=== PATIENT | female | born 1960 | race Two or more races ===

== ENCOUNTER 2020-08-29 13:53 | Emergency (ER) | payer OTHER, SELFPAY ==
[2020-08-29 15:17] VITALS: BP 166/80; PULSE 84; RESP 15; TEMP 36.6; O2SAT 97; BMI 38.2
[2020-08-29 16:45] VITALS: BP 147/102; PULSE 87; RESP 19; TEMP 37.1; O2SAT 96
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
== END 2020-08-29 17:59 | disposition home or self-care (01) ==
PROVIDERS: Emergency Provider Emergency Medicine Emergency Medical Services; PCP Internal Medicine
DX: M17.0 Bilateral primary osteoarthritis of knee (principal); M79.601 Pain in right arm; M79.602 Pain in left arm; M79.605 Pain in left leg; M79.604 Pain in right leg; I10 Essential (primary) hypertension; Z79.899 Other long term (current) drug therapy
CPT/HCPCS: 99283; 99284

== ENCOUNTER 2021-09-24 15:33 | Outpatient (REF) | payer OTHER, SELFPAY ==
--- NOTE | ~2021-09-24 | XR_ITS ---
EXAMINATION: XR FOOT, RIGHT CLINICAL INFORMATION: M19.071 - Primary osteoarthritis, right ankle and foot COMPARISON: None TECHNIQUE: AP, lateral, and oblique views of the right foot. FINDINGS: There is no acute or healing fracture or dislocation. Hallux valgus is present approximately 30 degrees with medial bunion. There is no destructive process. No erosive changes. There are mild degenerative changes involving the DIP joints second and third toes. There are posterior and plantar calcaneal spurs. The subtalar joint is unremarkable. The retrocalcaneal recess is preserved. XR/XR foot RT min 3V IMPRESSION: 1. Hallux valgus with medial bunion. 2. Posterior and plantar calcaneal spurs. 3. Mild degenerative changes DIP joints second and third toes. No erosive changes.
== END 2021-09-24 15:34 | disposition home or self-care (01) ==
LOC: HO.HMGCX 15:33
PROVIDERS: PCP Internal Medicine; Visit Provider Internal Medicine
DX: M19.071 Primary osteoarthritis, right ankle and foot (principal)
CPT/HCPCS: 73630

== ENCOUNTER 2021-11-15 15:26 | Outpatient (REF) | payer OTHER, SELFPAY ==
--- NOTE | ~2021-11-15 | MM_ITS ---
EXAMINATION: MM SCREENING DIGITAL BREAST TOMOSYNTHESIS, BILATERAL CLINICAL INFORMATION: Screening. Asymptomatic. The lifetime risk of breast cancer based on the Tyrer-Cuzick Model is 6%. COMPARISON: Mammography: 10/31/2019, 03/05/2017, 07/06/2015 TECHNIQUE: Digital breast tomosynthesis is performed in both the craniocaudal and mediolateral oblique views along with computer-aided detection (CAD). Synthesized 2D images are generated from the tomosynthesis. FINDINGS: There are scattered areas of fibroglandular density (ACR BI-RADS breast composition Category b). The right breast shows parenchymal pattern similar to prior studies. There is no interval mass or architectural abnormality or developing density. The bilateral axilla and skin contours are unremarkable. Left breast has incidental new 0.8 cm oil cyst mid upper outer quadrant. Just anterior to the oil cyst is a 0.5 cm focal nodular asymmetry with questionable fatty component on tomography which may suggest adjacent fat necrosis. Left breast also has interval scattered fine calcifications upper outer left breast mid depth. There are benign grouped coarse calcifications anterior upper outer left breast and 2 groups of fine round calcifications upper outer left breast just anterior to the focal nodular asymmetry. Left breast findings may represent sequela from recent or remote trauma. Patient will be recalled for additional imaging. MM/MM tomosynthesis screening BI IMPRESSION: Left: -Small focal nodular asymmetry adjacent to benign oil cyst possibly focus of fat necrosis. -New scattered punctate round calcifications upper outer quadrant. Right: -No mammographic evidence of malignancy. ASSESSMENT: BI-RADS 0: Incomplete - Need Additional Imaging Evaluation RECOMMENDATION: 1. Additional views of the left breast for 2 findings: Focal nodular asymmetric density and grouped calcifications (spot magnification CC; spot magnification ML). 2. Targeted ultrasound if warranted after review of the additional views. 3. Radiology department staff will contact the patient for additional imaging. This patient's information was entered into a reminder system with a target due date for their next mammogram.
== END 2021-11-15 15:27 | disposition home or self-care (01) ==
LOC: HO.MAMMO 15:26
PROVIDERS: PCP Internal Medicine; Visit Provider Internal Medicine
DX: Z12.31 Encounter for screening mammogram for malignant neoplasm of breast (principal)
CPT/HCPCS: 77063; 77067

== ENCOUNTER 2021-12-02 14:32 | Outpatient (REF) | payer OTHER, SELFPAY ==
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
== END 2021-12-02 14:33 | disposition home or self-care (01) ==
LOC: HO.MAMMO 14:32
PROVIDERS: Visit Provider Internal Medicine
DX: R92.1 Mammographic calcification found on diagnostic imaging of breast (principal)
CPT/HCPCS: 76642; 77065

== ENCOUNTER 2022-05-30 14:47 | Outpatient (REF) | payer OTHER, SELFPAY ==
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
== END 2022-05-30 14:48 | disposition home or self-care (01) ==
LOC: HO.MAMMO 14:47
PROVIDERS: PCP Internal Medicine; Visit Provider Internal Medicine
DX: R92.1 Mammographic calcification found on diagnostic imaging of breast (principal)
CPT/HCPCS: 77061; 77065

== ENCOUNTER 2022-12-02 14:28 | Outpatient (REF) | payer OTHER, SELFPAY ==
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
== END 2022-12-02 14:29 | disposition home or self-care (01) ==
LOC: HO.MAMMO 14:28
PROVIDERS: PCP Internal Medicine; Visit Provider Internal Medicine
DX: R92.1 Mammographic calcification found on diagnostic imaging of breast (principal)
CPT/HCPCS: 77062; 77066

== ENCOUNTER 2023-01-06 16:40 | Outpatient (REF) | payer OTHER, SELFPAY ==
[2023-01-06 17:35] LABS: Influenza A PCR NEGATIVE (Negative); Influenza B PCR NEGATIVE (Negative); Resp Syncy Virus RNA Qual PCR NEGATIVE (Negative); SARS COV2 PCR INHOUSE NEGATIVE (Negative)
== END 2023-01-06 16:41 | disposition home or self-care (01) ==
LOC: HO.LNP 16:40
PROVIDERS: Visit Provider Physician Assistant
DX: Z20.822 Contact with and (suspected) exposure to COVID-19 (principal)
CPT/HCPCS: 0241U

== ENCOUNTER 2023-12-08 14:38 | Outpatient (REF) | payer OTHER, SELFPAY ==
--- NOTE | ~2023-12-08 | MM_ITS ---
EXAMINATION: MM DIAGNOSTIC DIGITAL BREAST TOMOSYNTHESIS, BILATERAL CLINICAL INFORMATION: The patient presents for twelve-month follow-up of left breast calcifications and annual screening of the right breast. COMPARISON: Mammography: This study is compared with prior examinations dating back to 2019. TECHNIQUE: Digital breast tomosynthesis is performed in both the craniocaudal and mediolateral oblique views along with computer-aided detection (CAD). Synthesized 2D images are generated from the tomosynthesis. CC and lateral magnification images of the left breast were obtained. FINDINGS: There are scattered areas of fibroglandular density (ACR BI-RADS breast composition Category b). There are no significant masses, abnormal calcifications, or other abnormalities in either breast. There are unchanged, benign, coarse calcifications in the upper outer quadrant of the right breast. MM/MM tomosynthesis diagnostic BI IMPRESSION: No mammographic evidence of malignancy. Benign calcifications left breast. ASSESSMENT: BI-RADS BI-RADS 2 - Benign Findings RECOMMENDATION: 1 year F/U Results were provided to the patient at time of visit by the technologist. This patient's information was entered into a reminder system with a target due date for their next mammogram.
== END 2023-12-08 14:39 | disposition home or self-care (01) ==
LOC: HO.MAMMO 14:38
PROVIDERS: PCP Internal Medicine; Visit Provider Internal Medicine
DX: R92.1 Mammographic calcification found on diagnostic imaging of breast (principal)
CPT/HCPCS: 77062; 77066

== ENCOUNTER → 2023-12-08 15:00 | Outpatient (BNV) | payer OTHER, SELFPAY | PROVIDERS: PCP Internal Medicine; Visit Provider Radiology Diagnostic Radiology | DX: R92.1 Mammographic calcification found on diagnostic imaging of breast (principal) | CPT/HCPCS: 77062; 77066 ==

== ENCOUNTER 2024-02-24 12:29 | Outpatient (AMB) | payer OTHER, SELFPAY ==
[2024-02-24 12:37] VITALS: BP 130/76; PULSE 76; O2SAT 96; BMI 41.1
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
== END 2024-02-24 15:29 | disposition home or self-care (01) ==
PROVIDERS: PCP Internal Medicine; Visit Provider Internal Medicine
DX: Z00.00 Encounter for general adult medical examination without abnormal findings (principal); Z92.89 Personal history of other medical treatment; I10 Essential (primary) hypertension; M54.2 Cervicalgia
CPT/HCPCS: 99396

== ENCOUNTER 2024-02-27 12:06 | Outpatient (REF) | payer OTHER, SELFPAY ==
[2024-02-27 13:33] LABS: MANUAL DIFF FLAG NO
[2024-02-27 13:35] LABS: Basophils Absolute Auto 0.1 X10*3/uL (0.0-0.2); Basophils Percent Auto 1.3 % (0-2); Eosinophils Absolute Auto 0.1 X10*3/uL (0.0-0.4); Eosinophils Percent Auto 1.5 % (0-4); Hematocrit 41.8 % (37.0-47.0); Hemoglobin 13.4 g/dl (12.0-16.0); Imm Gran Abs Auto 0.02 X10*3/uL (0.00-0.03); Imm Gran Pct Auto 0.3 % (0.0-0.4); Lymphocytes Percent Auto 32.7 % (20-40); Mean Corpuscular HGB Conc 32.1 g/dl (31.0-35.0); Mean Corpuscular Hemoglobin 28.6 pg (27.0-33.0); Mean Corpuscular Volume 89.1 fL (80.0-98.0); Monocytes Absolute Auto 0.4 X10*3/uL (0.1-1.2); Monocytes Percent Auto 6.7 % (2-11); Neutrophils Absolute Auto 3.5 x10*3/uL (2.0-8.3); Neutrophils Percent Auto 57.5 % (45-73); Platelet Count 276 X10*3/uL (160-400); Red Blood Count 4.69 X10*6/uL (4.20-5.50); White Blood Count 6.1 X10*3/uL (4.8-10.8)
[2024-02-27 14:31] LABS: Alanine Aminotransferase 18 U/L (0-31); Albumin Level 4.4 g/dL (3.5-5.0); Alkaline Phosphatase 66 U/L (39-117); Anion Gap 15 (12-20); Aspartate Amino Transferase 23 U/L (5-31); Bilirubin Total 0.3 mg/dL (0.0-1.0); Blood Urea Nitrogen 16 mg/dL (9-16); Calcium 9.9 mg/dL (8.4-10.2); Carbon Dioxide 27 mmol/L (22-29); Chloride 105 mmol/L (96-108); Cholesterol 232 mg/dL (<200); Estimated Glomerular Filt Rate > 60; Glucose Fasting 87 mg/dL (60-99); HDL Cholesterol 54 mg/dL (>40); LDL Cholesterol Calculated 153 mg/dL (<100); Potassium 4.7 mmol/L (3.3-5.1); Sodium 142 mmol/L (135-145); Triglycerides 127 mg/dL (<150)
[2024-02-27 14:46] LABS: Vitamin D 25-OH Total 37.4 ng/mL (>30)
== END 2024-02-27 12:07 | disposition home or self-care (01) ==
LOC: HO.HMGCLDS 12:06
PROVIDERS: PCP Internal Medicine; Visit Provider Internal Medicine
DX: Z00.00 Encounter for general adult medical examination without abnormal findings (principal); E55.9 Vitamin D deficiency, unspecified; I10 Essential (primary) hypertension
CPT/HCPCS: 36415; 80053; 80061; 82306; 84443; 85025

== ENCOUNTER 2024-05-11 12:15 | Outpatient (AMB) | payer OTHER, SELFPAY ==
[2024-05-11 12:16] VITALS: BP 134/82; PULSE 66; O2SAT 98; BMI 40.6
--- NOTE | 2024-05-11 12:16 | MHC.PC.OV ---
Vital Signs 05/11/24 12:16 Height 5 ft 3 in Weight 229 lb 2 oz BMI 40.6 BP 134/82 Blood Pressure Location Rt brachial Position Sitting Pulse 66 Pulse Source Pulse Oximeter Pulse Oximetry (%) 98 Oxygen Delivery Method Room Air Intake Visit Reasons: Follow up Intake Note: Pt is here today for a follow up visit. Allergies morphine [MORPHINE] Allergy (Unknown, Verified 05/11/24 12:17) PAIN IN STOMACH, stomach upset Medication List - Last Reconciled 05/11/24 by Alise Cardona MD lisinopril 10 mg PO DAILY sertraline 50 mg PO DAILY Ventolin HFA 90 mcg/actuation (albuterol sulfate) 2 puffs inhalation Q6H PRN NS Tobacco use date assessed: 05/11/24 Dental Screening Dental Screen Date: 05/11/24 Did you have a dental visit in the last 12 months?: Yes Did you have a dental problem in the last 6 months where you did not have access to dental care?: No Was dental information given to patient?: Patient has dentist HPI Follow up HPI Details Patient presents for the follow-up on hypertension controlled on lisinopril. Chronic anxiety stable on Zoloft. PE HPI Details Pt presents for HTN PFSH Medical History Diverticulitis Neck pain Annual physical exam Depression Migraine Chronic back pain Hypertension Surgical History S/P partial colectomy History of hysterectomy H/O colonoscopy Family History Father Diabetes mellitus Mother No problems noted. Social History Housing: Apartment Alcohol intake: never Patient Tobacco Use Status: Never used Tobacco e-Cigarette/Vaping Use: Never Used Current occupational status: unemployed Cognitive needs: No Hearing needs: No Vision needs: Yes Questionnaire PHQ-9 Over the last 2 weeks, how often have you been bothered by any of the following problems? 1. Little interest or pleasure in doing things: not at all 2. Feeling down, depressed, or hopeless: more than half the days 3. Trouble falling or staying asleep, or sleeping too much: not at all 4. Feeling tired or having little energy: more than half the days 5. Poor appetite or overeating: more than half the days 6. Feeling bad about yourself - or that you are a failure or have let yourself or your family down: not at all 7. Trouble concentrating on things, such as reading the newspaper or watching television: not at all 8. Moving or speaking so slowly that other people could have noticed. Or the opposite - being so fidgety or restless that you have been moving around a lot more than usual: not at all 9. Thoughts that you would be better off or of hurting yourself in some way: not at all Total score: 6 Depression Screening Interpretation: Negative Depression Screening Done: Yes 60064 - PHQ-9 Billing: Yes Source: Developed by Drs. Abel Rene, Viridiana Magallon, Cristian Chaudhary and colleagues, with an educational abe from [email or web address]. Thrive Questionnaire Date Thrive assessed: 05/11/24 I am a: Patient What is your living situation today?: I have a steady place to live Within the past 12 months, did the food you bought not last and you didn't have the money to get more?: Sometimes True Within the past 12 months, did you worry whether your food would run out before you got money to buy more?: Sometimes True Do you have trouble paying for medicines?: No Do you have trouble getting transportation to medical appointments?: No Do you have trouble paying your heating and electricity bill?: No Do you have trouble taking care of your child, family member or friend?: No Do you have trouble with day-to-day activities such as bathing, preparing meals, shopping, managing finances, etc.?: Yes Are you currently unemployed and looking for a job?: No Are you interested in more education?: No Please select the resources that you would like help with: Food Currently or been in a relationship where the following occur: No concerns reported THRIVE Score: 2 AUDIT C Alcohol Use Questionnaire (AUDIT-C) 1. How often do you have a drink containing alcohol?: Never 3. How often do you have six or more drinks on one occasion?: Never Total Score: 0 Score Reviewed/Action Taken: Yes KANU-7 AMB Questionnaire KANU-7 Date KANU - 7 assessed: 05/11/24 Feeling nervous, anxious, or on edge: 2 = More than half the days Not being able to stop or control worryin = Several days Worrying too much about different things: 1 = Several days Trouble relaxin = Not at all Being so restless that it is hard to sit still: 0 = Not at all Becoming easily annoyed or irritable: 0 = Not at all Feeling afraid as if something awful might happen: 1 = Several days Total KANU-7 score (0-4 normal; 5-9 mild; 10-14 moderate; 15-21 severe): 5 Source: Developed by Drs. Abel Rene, Viridiana Magallon, Cristian Chaudhary and colleagues, with an educational abe from [email or web address]. KANU-7 Assessment Billing KANU-7 Assessment Tool: KANU-7 Assessment 47145 Review of Systems Const All systems reviewed & are unremarkable except as noted in HPI and below Eyes Reports no additional complaints ENT Reports no additional complaints Card Reports no additional complaints Resp Reports no additional complaints GI Reports no additional complaints Reports no additional complaints Physical exam (Primary Care) Vital Signs: Last Vital Signs Pulse 66 05/11/24 12:16 BP 134/82 05/11/24 12:16 Pulse Ox 98 05/11/24 12:16 Oxygen Delivery Method Room Air 05/11/24 12:16 BMI result Body Mass Index 40.6 Tobacco/Smoking Status: Tobacco use Status Tobacco use date assessed 05/11/24 05/11/24 12:18 Patient Tobacco Use Status Never used Tobacco 05/11/24 12:18 e-Cigarette/Vaping Use Never Used 05/11/24 12:18 PHQ-9: PHQ-9 Score PHQ-9: Total score 6 05/11/24 12:18 Depression Screening Interpretation: Negative Thrive Assessment: Date of Thrive Assessment Date Thrive assessed 05/11/24 05/11/24 12:18 Currently or been in a relationship where the following occur: No concerns reported Const General: no acute distress HENMT Head: Yes normal to inspection Ears: hearing grossly normal bilaterally Neck Neck: Yes supple Resp Effort & Inspection: normal respiratory effort Auscultation: clear to auscultation bilaterally Cardio Rhythm: regular rhythm Heart sounds: S1 normal heart sound present and S2 normal heart sound present GI Inspection: Yes normal to inspection Palpation (GI): Soft to palpation Percussion: Yes normal to percussion Auscultation: normal bowel sounds Assessment and Plan Assessment & Plan (1) Hypertension: Code(s): I10 - Essential (primary) hypertension Plan: Continue Lisinopril (2) Hyperlipidemia: Code(s): E78.5 - Hyperlipidemia, unspecified Plan: Low-cholesterol diet increase exercise weight loss discussed with the patient (3) Overweight: Code(s): E66.3 - Overweight Plan: Decreasing caloric intake increase physical activity discussed with the patient return for physical with a fasting labs before Orders: Orders Lipid Panel 1 Year E66.3 - Overweight, E78.5 - Hyperlipidemia, unspecified, I10 - Essential (primary) hypertension Comprehensive [place]. Panel Fast 1 Year E66.3 - Overweight, E78.5 - Hyperlipidemia, unspecified, I10 - Essential (primary) hypertension TSH reflex Free T4 1 Year E66.3 - Overweight, E78.5 - Hyperlipidemia, unspecified, I10 - Essential (primary) hypertension Complete Blood Count Auto Diff 1 Year E66.3 - Overweight, E78.5 - Hyperlipidemia, unspecified, I10 - Essential (primary) hypertension Vitamin D 25-OH Total 1 Year E66.3 - Overweight, E78.5 - Hyperlipidemia, unspecified, I10 - Essential (primary) hypertension Coding Level of Care Code Est Pt Level 4 (32790) Diagnoses Hypertension I10 Hyperlipidemia E78.5 Overweight E66.3 Additional Codes KANU-7 Assessment Billing - KANU-7 Assessment Tool: KANU-7 Assessment 77805 ([id number])
== END 2024-05-11 13:02 | disposition home or self-care (01) ==
PROVIDERS: PCP Internal Medicine; Visit Provider Internal Medicine
DX: I10 Essential (primary) hypertension (principal); E78.5 Hyperlipidemia, unspecified; E66.3 Overweight
CPT/HCPCS: 99214

== ENCOUNTER 2024-12-30 13:49 | Outpatient (AMB) | payer OTHER, SELFPAY ==
[2024-12-30 13:51] VITALS: BP 124/72; PULSE 71; RESP 20; TEMP 36.9; O2SAT 97; BMI 41.6
--- NOTE | 2024-12-30 13:51 | A.OFFPC_ITS ---
Vital Signs 12/30/24 13:51 Height 5 ft 3 in Weight 235 lb BMI 41.6 BP 124/72 Blood Pressure Location Lt brachial Position Sitting Respiration 20 Pulse 71 Pulse Source Pulse Oximeter Temp 98.4 F Temp Source Oral Pulse Oximetry (%) 97 Oxygen Delivery Method Room Air Intake Visit Reasons: 6M Follow up - see comments Intake Note: Pt is here today for 6 months follow up visit. Allergies morphine [MORPHINE] Allergy (Unknown, Verified 12/30/24 13:54) PAIN IN STOMACH, stomach upset Medication List - Last Reconciled 12/30/24 by Alise Cardona MD lisinopril 10 mg PO DAILY sertraline 50 mg PO DAILY Ventolin HFA 90 mcg/actuation (albuterol sulfate) 2 puffs inhalation Q6H PRN NS Tobacco use date assessed: 12/30/24 Dental Screening Dental Screen Date: 12/30/24 Did you have a dental visit in the last 12 months?: Yes Did you have a dental problem in the last 6 months where you did not have access to dental care?: No Was dental information given to patient?: Patient has dentist HPI 6M Follow up - see comments HPI Details Patient presents for the follow-up on hypertension chronic anxiety stable on current medications. She complains of bilateral knee pain worse when walking and has been physically limited with house work and self-care. [facility] Medical History (Updated 12/30/24 @ 14:29 by Alise Cardona MD) Diverticulitis Neck pain Annual physical exam Depression Migraine Chronic back pain Hypertension Surgical History S/P partial colectomy History of hysterectomy H/O colonoscopy Family History Father Diabetes mellitus Mother No problems noted. Social History Housing: Apartment Alcohol intake: never Patient Tobacco Use Status: Never used Tobacco e-Cigarette/Vaping Use: Never Used service: No Current occupational status: unemployed Cognitive needs: No Hearing needs: No Vision needs: Yes Questionnaire PHQ-9 Over the last 2 weeks, how often have you been bothered by any of the following problems? 1. Little interest or pleasure in doing things: nearly every day 2. Feeling down, depressed, or hopeless: more than half the days 3. Trouble falling or staying asleep, or sleeping too much: not at all 4. Feeling tired or having little energy: nearly every day 5. Poor appetite or overeating: not at all 6. Feeling bad about yourself - or that you are a failure or have let yourself or your family down: more than half the days 7. Trouble concentrating on things, such as reading the newspaper or watching television: more than half the days 8. Moving or speaking so slowly that other people could have noticed. Or the opposite - being so fidgety or restless that you have been moving around a lot more than usual: not at all 9. Thoughts that you would be better off or of hurting yourself in some way: not at all Total score: 12 Depression Screening Interpretation: Positive (Patient declined therapy or change in the medication) Depression Screening Follow-up: Existing condition and In treatment Depression Screening Done: Yes 28562 - PHQ-9 Billing: Yes Source: Developed by Drs. Abel Rene, Viridiana Magallon, Cristian Chaudhary and colleagues, with an educational abe from [employer]. Thrive Questionnaire Date Thrive assessed: 12/30/24 I am a: Patient What is your living situation today?: I have a steady place to live Within the past 12 months, did the food you bought not last and you didn't have the money to get more?: Never true Within the past 12 months, did you worry whether your food would run out before you got money to buy more?: Never true Do you have trouble paying for medicines?: No Do you have trouble getting transportation to medical appointments?: No Do you have trouble paying your heating and electricity bill?: No Do you have trouble taking care of your child, family member or friend?: I choose not to answer this question Do you have trouble with day-to-day activities such as bathing, preparing meals, shopping, managing finances, etc.?: Yes Are you currently unemployed and looking for a job?: No Are you interested in more education?: No Please select the resources that you would like help with: None Currently or been in a relationship where the following occur: No concerns reported THRIVE Score: 0 AUDIT C Alcohol Use Questionnaire (AUDIT-C) 1. How often do you have a drink containing alcohol?: Never 3. How often do you have six or more drinks on one occasion?: Never Total Score: 0 KANU-7 AMB Questionnaire KANU-7 Date KANU - 7 assessed: 12/30/24 Feeling nervous, anxious, or on edge: 2 = More than half the days Not being able to stop or control worryin = Nearly every day Worrying too much about different things: 2 = More than half the days Trouble relaxin = More than half the days Being so restless that it is hard to sit still: 0 = Not at all Becoming easily annoyed or irritable: 0 = Not at all Feeling afraid as if something awful might happen: 0 = Not at all Total KANU-7 score (0-4 normal; 5-9 mild; 10-14 moderate; 15-21 severe): 9 Source: Developed by Drs. Abel Rene, Viridiana Magallon, Cristian Chaudhary and colleagues, with an educational abe from [employer]. KANU-7 Assessment Billing KANU-7 Assessment Tool: KANU-7 Assessment 00672 Review of Systems Const All systems reviewed & are unremarkable except as noted in HPI and below Eyes Reports no additional complaints ENT Reports no additional complaints Card Reports no additional complaints Resp Reports no additional complaints GI Reports no additional complaints Reports no additional complaints Physical exam (Primary Care) Vital Signs: Last Vital Signs Temp 98.4 F 12/30/24 13:51 Pulse 71 12/30/24 13:51 Resp 20 12/30/24 13:51 BP 124/72 12/30/24 13:51 Pulse Ox 97 12/30/24 13:51 Oxygen Delivery Method Room Air 12/30/24 13:51 BMI result Body Mass Index 41.6 Tobacco/Smoking Status: Tobacco use Status Tobacco use date assessed 12/30/24 12/30/24 13:58 Patient Tobacco Use Status Never used Tobacco 12/30/24 13:58 e-Cigarette/Vaping Use Never Used 12/30/24 13:58 PHQ-9: PHQ-9 Score PHQ-9: Total score 12 12/30/24 13:58 Depression Screening Interpretation: Positive (Patient declined therapy or change in the medication) Depression Screening Follow-up: Existing condition and In treatment Thrive Assessment: Date of Thrive Assessment Date Thrive assessed 12/30/24 12/30/24 13:58 Currently or been in a relationship where the following occur: No concerns reported Const General: no acute distress HENMT Head: Yes normal to inspection Eyes General: appearance normal, both eyes and all related structures Neck Neck: Yes supple Resp Effort & Inspection: normal respiratory effort Auscultation: clear to auscultation bilaterally Cardio Rhythm: regular rhythm Heart sounds: S1 normal heart sound present and S2 normal heart sound present GI Inspection: Yes normal to inspection Palpation (GI): Soft to palpation Percussion: Yes normal to percussion Extrem Other: There is decreased central motion and crepitus of both knees General: Yes no clubbing, cyanosis or edema Coding Level of Care Code Est Pt Level 4 (37988) Diagnoses Knee pain, bilateral M25.561; M25.562 Hypertension I10 Hyperlipidemia E78.5 Depression F32.9 Additional Codes KANU-7 Assessment Billing - KANU-7 Assessment Tool: KANU-7 Assessment 46750 ([id number]) PHQ-9 - 30569 - PHQ-9 Billing: Yes ([id number]) Assessment & Plan Assessment & Plan (1) Knee pain, bilateral: Code(s): M25.561 - Pain in right knee; M25.562 - Pain in left knee Category: Medical Plan: Obtain knee x-rays, patient declined physical therapy (2) Hypertension: Code(s): I10 - Essential (primary) hypertension Category: Medical Plan: Continue lisinopril (3) Hyperlipidemia: Code(s): E78.5 - Hyperlipidemia, unspecified Category: Medical Plan: Low-cholesterol diet increase physical activity weight loss discussed with the patient. she will return for physical in 6 months with a fasting labs before (4) Depression: Comment: On Zoloft declined counseling Code(s): F32.9 - Major depressive disorder, single episode, unspecified Category: Medical Plan: Continue Zoloft patient declined counseling Orders: Orders Lipid Panel 6 Months E55.9 - Vitamin D deficiency, unspecified, E78.5 - Hyperlipidemia, unspecified, I10 - Essential (primary) hypertension TSH reflex Free T4 6 Months E55.9 - Vitamin D deficiency, unspecified, E78.5 - Hyperlipidemia, unspecified, I10 - Essential (primary) hypertension Vitamin D 25-OH Total 6 Months E55.9 - Vitamin D deficiency, unspecified, E78.5 - Hyperlipidemia, unspecified, I10 - Essential (primary) hypertension XR knee standing BI Today M25.561 - Pain in right knee, M25.562 - Pain in left knee Comprehensive [place]. Panel Fast 6 Months E55.9 - Vitamin D deficiency, unspecified, E78.5 - Hyperlipidemia, unspecified, I10 - Essential (primary) hypertension Complete Blood Count Auto Diff 6 Months E55.9 - Vitamin D deficiency, unspecified, E78.5 - Hyperlipidemia, unspecified, I10 - Essential (primary) hypertension
== END 2024-12-30 14:34 | disposition home or self-care (01) ==
LOC: HO.HMCC 13:50
PROVIDERS: PCP Internal Medicine; Visit Provider Internal Medicine
DX: M25.561 Pain in right knee (principal); M25.562 Pain in left knee; I10 Essential (primary) hypertension; E78.5 Hyperlipidemia, unspecified; F32.9 Major depressive disorder, single episode, unspecified

== ENCOUNTER → 2024-12-30 13:49 | Outpatient (BNVA) | payer OTHER, SELFPAY | PROVIDERS: PCP Internal Medicine; Visit Provider Internal Medicine | DX: M25.561 Pain in right knee (principal); M25.562 Pain in left knee; I10 Essential (primary) hypertension; E78.5 Hyperlipidemia, unspecified; F32.9 Major depressive disorder, single episode, unspecified | CPT/HCPCS: 96127; 99212 ==

== ENCOUNTER 2024-12-31 10:02 | Outpatient (REF) | payer OTHER, SELFPAY ==
--- NOTE | ~2024-12-31 | XR_ITS ---
EXAMINATION: XR KNEES ANTEROPOSTERIOR STANDING BILATERAL HISTORY: M25.561 - Pain in right knee COMPARISON: Correlation is made with the prior examination of the left knee dated 11/21/2019. FINDINGS: Standing AP views of the bilateral knees are submitted. Osseous mineralization is normal. No fracture is seen. Alignment is anatomic on these AP views. There is mild narrowing of the medial compartment of the left knee. The soft tissues are unremarkable. XR/XR knee standing BI IMPRESSION: Mild narrowing of the medial compartment of the left knee. Evaluation is otherwise limited on these solitary AP views. Electronically signed by: Abel Johnson MD 01/02/2025 01:52 PM EDT
== END 2024-12-31 10:03 | disposition home or self-care (01) ==
LOC: HO.HMGCX 10:02
PROVIDERS: PCP Internal Medicine; Visit Provider Internal Medicine
DX: M25.561 Pain in right knee (principal); M25.562 Pain in left knee
CPT/HCPCS: 73565

== ENCOUNTER → 2024-12-31 10:06 | Outpatient (BNV) | payer OTHER, SELFPAY | PROVIDERS: PCP Internal Medicine; Visit Provider Radiology Diagnostic Radiology | DX: M25.561 Pain in right knee (principal) | CPT/HCPCS: 73565 ==

== ENCOUNTER 2025-01-25 14:46 | Outpatient (REF) | payer OTHER, SELFPAY | END 2025-01-25 14:47 | disposition home or self-care (01) | LOC: HO.MAMMO 14:46 | PROVIDERS: PCP Internal Medicine; Visit Provider Internal Medicine | DX: Z12.31 Encounter for screening mammogram for malignant neoplasm of breast (principal) | CPT/HCPCS: 77063; 77067 ==

== ENCOUNTER → 2025-01-25 15:00 | Outpatient (BNV) | payer OTHER, SELFPAY | PROVIDERS: PCP Internal Medicine; Visit Provider Internal Medicine | DX: Z12.31 Encounter for screening mammogram for malignant neoplasm of breast (principal) | CPT/HCPCS: 77063; 77067 ==

== ENCOUNTER 2025-07-07 13:59 | Outpatient (REF) | payer OTHER, SELFPAY ==
--- NOTE | ~2025-07-07 | XR_ITS ---
EXAMINATION: XR SHOULDER, LUIS EDUARDO 2V CLINICAL INFORMATION: M25.511 - Pain in right shoulder COMPARISON: None available. TECHNIQUE: Three views of each shoulder. FINDINGS: RIGHT SHOULDER: Normal bone mineralization. No fracture, dislocation, or suspicious bone lesion. Normal alignment. The glenohumeral joint demonstrates moderate degenerative arthropathy with a large undersurface humeral head spur. The AC joint demonstrates moderate hypertrophic spurring. There is a type II acromion. No undersurface spurring. The subacromial space is preserved. Remainder of the soft tissue and bony structures appear normal. LEFT SHOULDER: Normal bone mineralization. No fracture, dislocation, or suspicious bone lesion. Normal alignment. The glenohumeral joint demonstrates moderate degenerative arthropathy with a large undersurface humeral head spur. The AC joint demonstrates moderate hypertrophic spurring. There is a type II acromion. No undersurface spurring. The subacromial space is preserved. Remainder of the soft tissue and bony structures appear normal. XR/XR Shoulder Luis Eduardo min 2V IMPRESSION: 1. No acute bony abnormalities of either shoulder. 2. Moderate degenerative arthrosis of the bilateral glenohumeral joints and bilateral AC joints. Electronically signed by: Alexsander Rangel MD 07/07/2025 03:36 PM EDT
[2025-07-07 16:19] LABS: MANUAL DIFF FLAG NO
[2025-07-07 16:23] LABS: Hematocrit 39.4 % (37.0-47.0); Hemoglobin 12.8 g/dl (12.0-16.0); Imm Gran Abs Auto 0.02 X10*3/uL (0.00-0.03); Imm Gran Pct Auto 0.2 % (0.0-0.4); Lymphocytes Absolute Auto 1.8 X10*3/uL (1.2-4.9); Mean Corpuscular HGB Conc 32.5 g/dl (31.0-35.0); Mean Corpuscular Hemoglobin 28.3 pg (27.0-33.0); Mean Corpuscular Volume 87.2 fL (80.0-98.0); NRBC Abs Auto 0.000 X10*3/uL (0.0-0.012); NRBC Pct Auto 0.0 /100WBC (0.0-0.2); Platelet Count 255 X10*3/uL (160-400); Red Blood Count 4.52 X10*6/uL (4.20-5.50); White Blood Count 8.0 X10*3/uL (4.8-10.8)
[2025-07-07 16:49] LABS: Alanine Aminotransferase 29 U/L (0-31); Albumin Level 4.6 g/dL (3.5-5.0); Alkaline Phosphatase 66 U/L (39-117); Anion Gap 12 (12-20); Aspartate Amino Transferase 40 U/L (5-31); Blood Urea Nitrogen 15 mg/dL (9-16); Calcium 9.2 mg/dL (8.4-10.2); Carbon Dioxide 28 mmol/L (22-29); Chloride 107 mmol/L (96-108); Cholesterol 245 mg/dL (<200); Estimated Glomerular Filt Rate > 60; HDL Cholesterol 51 mg/dL (>40); Potassium 4.4 mmol/L (3.3-5.1); Sodium 143 mmol/L (135-145); Total Protein 8.0 g/dL (6.5-8.0); Triglycerides 110 mg/dL (<150)
== END 2025-07-07 14:00 | disposition home or self-care (01) ==
LOC: HO.HMGCX 13:59
PROVIDERS: PCP Internal Medicine; Visit Provider Internal Medicine
DX: I10 Essential (primary) hypertension (principal); F32.9 Major depressive disorder, single episode, unspecified; E78.5 Hyperlipidemia, unspecified; E55.9 Vitamin D deficiency, unspecified; M25.511 Pain in right shoulder; M25.512 Pain in left shoulder; Z79.899 Other long term (current) drug therapy
CPT/HCPCS: 36415; 73030; 80053; 80061; 82306; 84443; 85025; 86140; 99212

== ENCOUNTER 2025-07-07 13:59 | Outpatient (AMB) | payer OTHER, SELFPAY ==
[2025-07-07 14:10] VITALS: BP 134/80; PULSE 76; RESP 19; TEMP 36.9; O2SAT 95; BMI 41.6
--- NOTE | 2025-07-07 14:10 | A.OFFPC_ITS ---
Vital Signs 07/07/25 14:10 Height 5 ft 3 in Weight 235 lb BMI 41.6 BP 134/80 Blood Pressure Location Lt brachial Position Sitting Respiration 19 Pulse 76 Pulse Source Pulse Oximeter Temp 98.5 F Temp Source Oral Pulse Oximetry (%) 95 Oxygen Delivery Method Room Air Intake Visit Reasons: 6m follow up Intake Note: Pt is here today for 6 months follow up visit. Allergies morphine (MORPHINE) Allergy (Unknown, Verified 07/07/25 14:12) PAIN IN STOMACH, stomach upset Medication List - Last Reconciled 07/07/25 by Alise Cardona MD lisinopril 10 mg PO DAILY sertraline 50 mg PO DAILY Ventolin HFA 90 mcg/actuation (albuterol sulfate) 2 puffs inhalation Q6H PRN NS Tobacco use date assessed: 07/07/25 Dental Screening Dental Screen Date: 12/30/24 HPI 6m follow up HPI Details Patient presents for a follow-up. She complains of bilateral shoulder pain and stiffness worse when trying to reach overhead. Patient tried physical therapy in the past without improvement. She has been taking sertraline for chronic anxiety. [facility] Medical History (Updated 07/07/25 @ 14:39 by Alise Cardona MD) Diverticulitis Neck pain Annual physical exam Depression Migraine Chronic back pain Hypertension Surgical History S/P partial colectomy History of hysterectomy H/O colonoscopy Family History Father Diabetes mellitus Mother No problems noted. Social History Housing: Apartment Alcohol intake: never Patient Tobacco Use Status: Never used Tobacco e-Cigarette/Vaping Use: Never Used service: No Current occupational status: unemployed Cognitive needs: No Hearing needs: No Vision needs: Yes Questionnaire PHQ-9 Over the last 2 weeks, how often have you been bothered by any of the following problems? 1. Little interest or pleasure in doing things: nearly every day 2. Feeling down, depressed, or hopeless: more than half the days 3. Trouble falling or staying asleep, or sleeping too much: not at all 4. Feeling tired or having little energy: nearly every day 5. Poor appetite or overeating: not at all 6. Feeling bad about yourself - or that you are a failure or have let yourself or your family down: more than half the days 7. Trouble concentrating on things, such as reading the newspaper or watching television: more than half the days 8. Moving or speaking so slowly that other people could have noticed. Or the op posite - being so fidgety or restless that you have been moving around a lot more than usual: not at all 9. Thoughts that you would be better off or of hurting yourself in some way: not at all Total score: 12 Depression Screening Interpretation: Positive (Patient declined therapy or change in the medication) Depression Screening Follow-up: Existing condition and In treatment Depression Screening Done: Yes Source: Developed by Drs. Abel Rene, Viridiana Magallon, Cristian Chaudhary and colleagues, with an educational abe from [employer]. Thrive Questionnaire Date Thrive assessed: 12/30/24 I am a: Patient What is your living situation today?: I have a steady place to live Within the past 12 months, did the food you bought not last and you didn't have the money to get more?: Never true Within the past 12 months, did you worry whether your food would run out before you got money to buy more?: Never true Do you have trouble paying for medicines?: No Do you have trouble getting transportation to medical appointments?: No Do you have trouble paying your heating and electricity bill?: No Do you have trouble taking care of your child, family member or friend?: I choose not to answer this question Do you have trouble with day-to-day activities such as bathing, preparing meals, shopping, managing finances, etc.?: Yes Are you currently unemployed and looking for a job?: No Are you interested in more education?: No Please select the resources that you would like help with: None Currently or been in a relationship where the following occur: No concerns reported THRIVE Score: 0 KANU-7 AMB Questionnaire KANU-7 Date KANU - 7 assessed: 12/30/24 Feeling nervous, anxious, or on edge: 2 = More than half the days Not being able to stop or control worryin = Nearly every day Worrying too much about different things: 2 = More than half the days Trouble relaxin = More than half the days Being so restless that it is hard to sit still: 0 = Not at all Becoming easily annoyed or irritable: 0 = Not at all Feeling afraid as if something awful might happen: 0 = Not at all Total KANU-7 score (0-4 normal; 5-9 mild; 10-14 moderate; 15-21 severe): 9 Source: Developed by Drs. Abel Rene, Viridiana Magallon, Cristian Chaudhary and colleagues, with an educational abe from [employer]. Review of Systems Const All systems reviewed & are unremarkable except as noted in HPI and below ENT Reports no additional complaints Card Reports no additional complaints Resp Reports no additional complaints GI Reports no additional complaints Reports no additional complaints Physical exam (Primary Care) Vital Signs: Last Vital Signs Temp 98.5 F 07/07/25 14:10 Pulse 76 07/07/25 14:10 Resp 19 07/07/25 14:10 BP 134/80 07/07/25 14:10 Pulse Ox 95 07/07/25 14:10 Oxygen Delivery Method Room Air 07/07/25 14:10 BMI result Body Mass Index 41.6 Tobacco/Smoking Status: Tobacco use Status Tobacco use date assessed 07/07/25 07/07/25 14:16 Patient Tobacco Use Status Never used Tobacco 07/07/25 14:16 e-Cigarette/Vaping Use Never Used 07/07/25 14:16 PHQ-9: PHQ-9 Score PHQ-9: Total score 12 07/07/25 14:16 Depression Screening Interpretation: Positive (Patient declined therapy or change in the medication) Depression Screening Follow-up: Existing condition and In treatment Thrive Assessment: Date of Thrive Assessment Date Thrive assessed 12/30/24 07/07/25 14:16 Currently or been in a relationship where the following occur: No concerns reported Const General: no acute distress HENMT Head: Yes normal to inspection Mouth: Normal oral and palatal mucosa present Neck Neck: Yes supple Cardio Rhythm: regular rhythm Heart sounds: S1 normal heart sound present and S2 normal heart sound present GI Inspection: Yes normal to inspection Palpation (GI): Soft to palpation Percussion: Yes normal to percussion Auscultation: normal bowel sounds Coding Level of Care Code Est Pt Level 4 (92982) Diagnoses Shoulder pain, bilateral M25.511; M25.512 Depression F32.9 Hypertension I10 Assessment & Plan Assessment & Plan (1) Shoulder pain, bilateral: Code(s): M25.511 - Pain in right shoulder; M25.512 - Pain in left shoulder Category: Medical Plan: For bilateral shoulder pain obtain x-rays and check CRP, shoulder exercises discussed with the patient, she declined physical therapy (2) Depression: Comment: On Zoloft declined counseling Code(s): F32.9 - Major depressive disorder, single episode, unspecified Category: Medical Plan: Continue Zoloft patient declined counseling (3) Hypertension: Code(s): I10 - Essential (primary) hypertension Category: Medical Plan: Increase lisinopril to 20 mg a day and follow-up in 1 month Orders: Orders C Reactive Protein Today M25.511 - Pain in right shoulder, M25.512 - Pain in left shoulder Vitamin D 25-OH Total Today E55.9 - Vitamin D deficiency, unspecified, E78.5 - Hyperlipidemia, unspecified, I10 - Essential (primary) hypertension XR Shoulder Luis Eduardo min 2V Today M25.511 - Pain in right shoulder, M25.512 - Pain in left shoulder Comprehensive [place]. Panel Fast Today E55.9 - Vitamin D deficiency, unspecified, E78.5 - Hyperlipidemia, unspecified, I10 - Essential (primary) hypertension Lipid Panel Today E55.9 - Vitamin D deficiency, unspecified, E78.5 - Hyperlipidemia, unspecified, I10 - Essential (primary) hypertension Complete Blood Count Auto Diff Today E55.9 - Vitamin D deficiency, unspecified, E78.5 - Hyperlipidemia, unspecified, I10 - Essential (primary) hypertension TSH reflex Free T4 Today E55.9 - Vitamin D deficiency, unspecified, E78.5 - Hyperlipidemia, unspecified, I10 - Essential (primary) hypertension Medications: New lisinopril 20 mg PO DAILY 90 tabs 0RF Discontinued lisinopril Discontinued Reason: Doctor's Order 10 mg PO DAILY 90 tabs 3RF I10 - Essential (primary) hypertension
== END 2025-07-07 14:47 | disposition home or self-care (01) ==
LOC: HO.HMCC 14:00
PROVIDERS: PCP Internal Medicine; Visit Provider Internal Medicine
DX: M25.511 Pain in right shoulder (principal); M25.512 Pain in left shoulder; F32.9 Major depressive disorder, single episode, unspecified; I10 Essential (primary) hypertension

== ENCOUNTER → 2025-07-07 15:06 | Outpatient (BNV) | payer OTHER, SELFPAY | PROVIDERS: PCP Internal Medicine; Visit Provider Radiology Diagnostic Radiology | DX: M19.111 Post-traumatic osteoarthritis, right shoulder (principal); M19.012 Primary osteoarthritis, left shoulder | CPT/HCPCS: 73030 ==

== ENCOUNTER 2025-09-07 15:04 | Outpatient (AMB) | payer OTHER, SELFPAY ==
[2025-09-07 15:10] VITALS: BP 130/88; PULSE 72; TEMP 36.9; O2SAT 96; BMI 42.2
--- NOTE | 2025-09-07 15:10 | AM.OFFWIN_ITS ---
Intake Vital Signs 09/07/25 15:10 Height 5 ft 3 in Weight 238 lb BMI 42.2 BP 130/88 Blood Pressure Location Lt brachial Position Sitting Pulse 72 Pulse Source Pulse Oximeter Temp 98.4 F Temp Source Oral Pulse Oximetry (%) 96 Oxygen Delivery Method Room Air Intake Visit Reasons: EP Pain on left side of body Intake Note: pt presents with left mid abdominal pain for a couple weeks- was told by health ins nurse that she has a fatty liver Patient Tobacco Use Status: Never used Tobacco Allergies morphine (MORPHINE) Allergy (Unknown, Verified 09/07/25 15:15) PAIN IN STOMACH, stomach upset Do you need a note to return to daycare/school/sports/work: No HPI HPI Comments History of Present Illness Details History of Present Illness - The patient is a 64-year-old individua l presenting with abdominal pain and a history of diverticulitis. - Abdominal pain has been present for so me time, with increased severity noted today. - Pain is localized to the upper abdomin al region and is exacerbated by coughing or sneezing. - The pain is a sharp constant pain and it radiates to the LLQ. - She has two normal bowel movements tod ay with no blood or mucous noted. - The patient has a history of diverticu litis, with the last episode occurring in 2021. - She states that this feel like her div erticulitis. - Previous treatment for diverticulitis included antibiotics, with a preference for liquid formulations due to difficulty swallowing pills. - The patient also reports a history of fatty liver, which was identified by a nurse during a routine check-up. - She denies back pain, trauma, CP, SOB, fever, chills, diarrhea constipation, melena, hematochezia, or vomiting. Physical Exam General: Cooperative, healthy appearing, comfortable, no acute distress and well developed Orientation: Patient oriented x3 Respiratory: Normal respiratory effort and able to speak in complete sentences. Clear to auscultation bilaterally Cardiovascular: Regular rate and rhythm. Normal S1 and S2 GI: Hypoactive BS noted. Soft, obese. TTP of the LUQ and LLQ. Mild guarding noted. No rebound tenderness noted, Negative [place]. Negative Rovsing noted. : Negative CVA tenderness noted. Skin: No rashes or lesions noted Neuro: Patient oriented x3 Extremities: Normal to inspection Patient was informed and verbally consented to the use of an ambient scribe for clinic note documentation during this visit. [facility] Medical History (Updated 07/07/25 @ 14:39 by Alise Cardona MD) Diverticulitis Neck pain Annual physical exam Depression Migraine Chronic back pain Hypertension Surgical History S/P partial colectomy History of hysterectomy H/O colonoscopy Family History Father Diabetes mellitus Mother No problems noted. Social History Housing: Apartment Alcohol intake: never Patient Tobacco Use Status: Never used Tobacco e-Cigarette/Vaping Use: Never Used service: No Current occupational status: unemployed Cognitive needs: No Hearing needs: No Vision needs: Yes Review of Systems Const All systems reviewed & are unremarkable except as noted in HPI and below Physical Exam Vital Signs: Last Vital Signs Temp 98.4 F 09/07/25 15:10 Pulse 72 09/07/25 15:10 BP 130/88 09/07/25 15:10 Pulse Ox 96 09/07/25 15:10 Oxygen Delivery Method Room Air 09/07/25 15:10 BMI result Body Mass Index 42.2 Assessment & Plan Assessment & Plan (1) Abdominal pain: Code(s): R10.9 - Unspecified abdominal pain Qualifiers: Abdominal location: left upper quadrant Qualified Code(s): R10.12 - Left upper quadrant pain Plan Most likely diverticulosis vs diverticulitis vs strain plan - Initiate antibiotic therapy with a liquid formulation due to difficulty swallowing pills. - Advise dietary modifications to avoid nuts, corn, and similar foods that may exacerbate symptoms. - Monitor for worsening symptoms such as fever, bloody diarrhea, or increased abdominal pain, and seek emergency care if these occur. - follow up with PCP Medications: New amoxicillin-pot clavulanate 250-62.5 mg/5 mL (Augmentin) needs 3 1/2 tsp TID for 7 days can't swallow pills Augmentin 875mg q hrs for 7 days is the equivalent 22.5 mL PO TID 472.5 mL 0RF 7 days Coding Level of Care Code Est Pt Level 3 (44445) Diagnoses Left upper quadrant abdominal pain R10.12 Abdominal location: left upper quadrant
== END 2025-09-07 16:09 | disposition home or self-care (01) ==
PROVIDERS: PCP Internal Medicine; Visit Provider Physician Assistant Medical
DX: R10.12 Left upper quadrant pain (principal)

== ENCOUNTER → 2025-09-07 15:04 | Outpatient (BNVA) | payer OTHER, SELFPAY | PROVIDERS: PCP Internal Medicine; Visit Provider Physician Assistant Medical | DX: R10.12 Left upper quadrant pain (principal); Z87.19 Personal history of other diseases of the digestive system | CPT/HCPCS: 99212 ==